=== PATIENT | female | born 1970 | race Hispanic/Latino ===

== ENCOUNTER 2022-01-21 07:14 | Day surgery (SDC) | payer BC ==
[2022-01-18 11:23] LABS: Potassium 4.5 mmol/L (3.5-5.1); Protime INR 0.88
[2022-01-18 11:26] LABS: Absolute Lymphocytes (CBC) 1.9 K/uL (0.7-4.9); Hematocrit 41.2 % (36.0-45.0); Lymphocytes % 33.9 % (15.3-44.8); MPV 8.7 fL (7.6-11.3); RBC Red Blood Cell Count 4.49 M/uL (3.86-4.86)
--- NOTE | 2022-01-18 11:45 | RAD REPORT ---
EXAM DESCRIPTION: [place] (2 Views)01/18/2022 11:27 am CLINICAL HISTORY: Preop for knee surgery COMPARISON: None FINDINGS: The lungs appear clear of acute infiltrate. The heart is normal size IMPRESSION: No acute abnormalities displayed
--- NOTE | 2022-01-18 13:31 | EKG ---
Test Date: 2022-01-18 Test Time: 10:49:49 Conveyor Attendant: LUCIAN MEASUREMENT RESULTS: Intervals: Rate: 75 AK: 120 QRSD: 68 QT: 372 QTc: 415 [place]: P: 20 AK: 120 QRS: -13 T: 31 INTERPRETIVE STATEMENTS: Normal sinus rhythm Normal ECG No previous ECG available for comparison Electronically Signed On 01-18-22 13:31:09 CDT by Kerwin Norris
[2022-01-21] MEDS ORDERED: Ringers Lactate 1,000 ML IV ONE (07:26)
[2022-01-21] MEDS ORDERED: CEFAZOLIN SODIUM 1 GM/VIAL ONE (07:26)
[2022-01-21] MEDS ORDERED: BUPIVACAINE 0.25% PF 10 ML VIAL ONE (07:30)
[2022-01-21] MEDS ORDERED: FENTANYL CITR 100 MCG/2 ML ONE (08:09)
[2022-01-21] MEDS ORDERED: MIDAZOLAM HCL 2 MG/2 ML INJ ONE (08:09)
[2022-01-21] MEDS ORDERED: LIDOCAINE 2% MPF 5 ML VIAL ONE (08:09)
[2022-01-21] MEDS ORDERED: propofoL 200 MG/20 ML VIAL IV ONE (08:09)
[2022-01-21] MEDS ORDERED: EPHEDRINE SULF 50 MG/ML VIAL ONE (08:37)
[2022-01-21] MEDS ORDERED: dexAMETHasone 10 MG/ML VIAL ONE (08:52)
[2022-01-21] MEDS ORDERED: ONDANSETRON 4 MG/2 ML VIAL ONE (08:52)
--- NOTE | 2022-01-21 09:11 | P.BOP ---
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
[2022-01-21 09:30] VITALS: O2SAT 100
[2022-01-21] MEDS ORDERED: HYDROCODONE/APAP 5/325 MG TAB ONE (10:17)
[2022-01-21 11:27] VITALS: BP 136/80; TEMP 97.3
== END 2022-01-21 10:35 | disposition home or self-care (01) ==
LOC: OR 07:14
PROVIDERS: ATTEND Orthopaedic Surgery Sports Medicine
PROC: 0SBC4ZZ Excision of Right Knee Joint, Percutaneous Endoscopic Approach (ICD-10-PCS; principal; 2022-01-21 08:00)
DX: S83.241A Other tear of medial meniscus, current injury, right knee, initial encounter (principal); Z20.822 Contact with and (suspected) exposure to COVID-19
CPT/HCPCS: 93005; 85025; 80048; 36415; 85610; 85730; 71046; 29881; U0002; J2704; J2250; J3010; J1100; J7120; J2405; J0690